=== PATIENT | female | born 1985 | race Caucasian/White ===

== ENCOUNTER 2017-05-17 14:04 | Emergency (ER) | payer OTHER, MEDICAID ==
[~2017-05-17] VITALS: Ht 165.1 cm; Wt 95.0 kg
[2017-05-17 14:05] VITALS: BP 138/94; PULSE 101; RESP 16; TEMP 98.8; O2SAT 99
[2017-05-17] MEDS ORDERED: CLIN300C5 PO (14:19)
--- NOTE | 2017-05-17 14:33 | PD ---
HPI . Dental pain Chief Complaint: Oral / Dental Pain or Problem Time Seen by Provider: 14:15 Travel History International Travel<30 days: No Contact w/Intl Traveler<30days: No Traveled to known affect area: No History of Present Illness HPI Patient presents with chief complaint of pain and swelling of the right jaw. Onset was today. She states that she has known dental caries and is planning to see her dentist in the near future to have an extraction of this particular tooth. However, it started bothering her today and has gotten progressively worse today causing her to present us. She rates the pain 10/10. She states that she has been seen here before for dental pain and has been treated with antibiotics with good temporary relief. PFSH Past Medical History ?: Not Social History Alcohol Use: Yes (occ) Tobacco Use: Yes (1/2 pack a day ) Substance Use: No Allergies-Medications (Allergen,Severity, Reaction): Coded Allergies: latex (Verified Allergy, Intermediate, rash, 05/17/17) Reported Meds & Prescriptions Reported Meds & Active Scripts Active Clindamycin (Clindamycin HCl) 300 Mg Cap 300 Mg PO TID Review of Systems Except as stated in HPI: all other systems reviewed are Neg General / Constitutional: No: Fever, Chills HENT: Positive: Dental Difficulties Physical Exam Narrative GENERAL: Awake and alert and in no acute distress. SKIN: Warm and dry. HEAD: Normocephalic/atraumatic. Minimal swelling of the right jaw. EYES: Pupils are equal. Extraocular movements are intact. ENT: She has dental caries of her right mandibular second bicuspid. It is tender to percussion. NECK: Normal range of motion. No cervical lymphadenopathy. CARDIOVASCULAR: Regular rate and rhythm. RESPIRATORY: Nonlabored respirations. MUSCULOSKELETAL: Atraumatic. NEUROLOGICAL: Nonfocal. PSYCHIATRIC: Appropriate mood and affect. Data Data Last Documented VS Vital Signs Date Time Temp Pulse Resp B/P (MAP) Pulse Ox O2 Delivery O2 Flow Rate FiO2 05/17/17 14:05 98.8 101 16 138/94 (109) 99 Orders Orders Ed Discharge Order (05/17/17 14:19) MDM Medical Decision Making Medical Screen Exam Complete: Yes Emergency Medical Condition: Yes Differential Diagnosis Differential diagnosis of a toothache includes but is not limited to dental caries, dental abscess, gingivitis, drug-seeking behavior. Narrative Course This patient presents with a toothache with associated swelling of the jaw. She has dental caries. I will discharge her on clindamycin. She is to follow- up with the dentist as planned. Diagnosis Primary Impression: Dental abscess Referrals: dentist of choice Patient Instructions: General Instructions Departure Forms: Tests/Procedures Scripts Clindamycin (Clindamycin) 300 Mg Cap 300 MG PO TID for Infection, #21 CAP 0 Refills Prov: Monika Lazaro MD 05/17/17 Disposition: DISCHARGE HOME Condition: Stable Monika Lazaro MD May 17, 2017 14:33
== END 2017-05-17 14:40 | disposition home or self-care (01) ==
LOC: NEPD 14:04
DX: K04.7 Periapical abscess without sinus (principal); K02.9 Dental caries, unspecified; F17.200 Nicotine dependence, unspecified, uncomplicated
CPT/HCPCS: 99283